=== PATIENT | female | born 1955 | race Two or more races ===

== ENCOUNTER 2025-01-12 08:54 | Observation (INO) | payer MEDICAID, SELFPAY ==
[2025-01-12] VITALS (13 sets, daily range): BP systolic 99–125; BP diastolic 57–69; PULSE 72–112; RESP 12–20; TEMP 36–37.2; O2SAT 92–100; BMI 22.8; BMI 25.2
--- NOTE | 2025-01-12 | XR_ITS ---
Examination: CT abdomen and pelvis without contrast. Coronal 3-D reconstructions. Sagittal 2-D reconstructions. Date and time of exam: January 12, 2025, 0923 hours INDICATIONS: Right upper abdominal pain right lower abdominal pain beginning 2 days ago CTDI: vol (mGy): 6.72 DLP: (mGycm): 377 Technique: Axial images of the abdomen have been obtained, 3 mm slice thickness Intravenous contrast material has not been administered. Low dose protocols were performed. One or more of the following dose reduction techniques were used; automated exposure control, adjustment of the mA and/or KV according to patient size, use of iterative reconstruction technique. Findings: No visualized liver or splenic lesion Abnormal gallbladder, gallstones, distended gallbladder with gallbladder wall thickening No pancreatic mass Multiple 1 to 2 mm left renal calculi Aorta normal size Normal appendix No bowel obstruction Mild fluid in the pelvis Atrophic uterus Intact urinary bladder Severe osteopenia with severe chronic osteoporotic compression T12 with mild retropulsion of this vertebral body Impression: Acute calculus cholecystitis
--- NOTE | 2025-01-12 09:16 | XR_ITS ---
Examination: Abdomen sonogram, Limited Date and time of exam: January 12, 2025, 10:20 a.m., comparison June 23, 2022 INDICATIONS: Right upper abdominal pain and tenderness beginning 2 days ago Technique: Real-time kasper scale transabdominal sonographic images of the upper abdomen obtained. Findings: Multiple gallstones Gallbladder sludge Prominent thickening of the gallbladder wall 2.2 cm with edema Common bile duct 0.6 cm Pancreatic head 2.1 cm Liver 16.5 cm fatty infiltration Normal hepatopetal portal venous flow Patent IVC IMPRESSION: Acute calculus cholecystitis
--- NOTE | 2025-01-12 09:16 | PD.EDRME ---
Rapid Medical Screening Exam RME Arrival date/time: 01/12/25 08:54 69-year-old female with no known medical history presents to the emergency room with a chief complaint of right sided upper and lower abdominal pain x 2 days I have greeted and performed a focused initial assessment of this patient. A comprehensive ED assessment and evaluation of the patient, analysis of all test results, and completion of the medical decision making process will be conducted by additional ED providers. Chief Complaint: Abdominal Pain Time Seen by Provider: 01/12/25 08:57 Vital signs: Vital Signs Temperature 98.1 F 01/12/25 09:13 Pulse Rate 112 H 01/12/25 09:13 Respiratory Rate 18 01/12/25 09:13 Blood Pressure 104/68 01/12/25 09:13 Pulse Oximetry (%) 97 01/12/25 09:13 Oxygen Delivery Method Room Air 01/12/25 09:13 Vital signs reviewed by provider: Yes Exam: Right upper quadrant abdominal pain with palpation Right lower quadrant abdominal pain with palpation Clinical Impression: Cholelithiasis/cholecystitis/appendicitis/gastroenteritis
[2025-01-12 09:52] LABS: Collection Type, Urine Clean Catch
[2025-01-12 09:53] LABS: Basophils # (Auto) 0.1 Thou/mm3 (0.0-0.2); Basophils % (Auto) 0 % (0-2.5); Eosinophils # (Auto) 0.3 Thou/mm3 (0.0-0.5); Eosinophils % (Auto) 1 % (0-10); Hematocrit 37.8 % (36.0-46.0); Hemoglobin 12.6 g/dL (12.0-16.0); Immature Granulocytes Auto 0.26 Thou/mm3 (0.00-0.00); Lymphocytes # (Auto) 1.1 Thou/mm3 (1.0-4.8); Lymphocytes % (Auto) 4 % (10-50); Mean Corpuscular HGB Conc 33.3 g/dl (31.0-37.0); Mean Corpuscular Hemoglobin 30.1 pg (25.0-35.0); Mean Corpuscular Volume 90 fL (80-100); Monocytes # (Auto) 1.5 Thou/mm3 (0.0-0.8); Monocytes % (Auto) 5 % (0-12); Neutrophils # (Auto) 26.1 Thou/mm3 (1.8-7.7); Neutrophils % (Auto) 89 % (37-80); Nucleated Red Blood Cell # 0.00 Thou/mm3 (0.00-0.00); Nucleated Red Blood Cell % 0 /100 WBC (0); Platelet Count 291 Thou/mm3 (140-440); RDW Standard Deviation 44.6 fL (36.4-46.3); Red Blood Count 4.19 Miln/mm3 (4.00-5.20); White Blood Count 29.2 Thou/mm3 (3.6-11.0)
[2025-01-12 10:12] LABS: Alanine Aminotransferase 10 U/L (10-49); Albumin, Serum 4.4 gm/dL (3.4-4.8); Albumin/Globulin Ratio 1.6 (1.2-2.2); Alkaline Phosphatase 92 U/L (46-116); Anion Gap 9 (7-16); Aspartate Amino Transferase 18 U/L (0-34); BUN/Creatinine Ratio 18 Ratio (12-20); Bilirubin,Total 2.2 mg/dL (0.3-1.2); Blood Urea Nitrogen 16 mg/dL (9-23); Calcium 9.3 mg/dL (8.3-10.6); Calcium (Corrected) 9.3 mg/dL (8.5-10.1); Carbon Dioxide 29.3 mMol/L (20.0-31.0); Chloride 97 mMol/L (98-107); Creatinine (Component) 0.9 mg/dL (0.6-1.3); Estimated Creatinine Clearance 60.4 mL/min (>60); Globulin 2.8 gm/dL (2.3-3.5); Glucose 133 mg/dL (74-106); Lipase 25 U/L (12-53); Osmolality,Calculated 273 (275-295); Potassium 4.0 mMol/L (3.4-5.1); Sodium 135 mMol/L (136-145); Total Protein 7.2 gm/dL (5.7-8.2); eGFR > 60 See Note
[2025-01-12 10:20] LABS: Bilirubin,Urine Negative (Negative); Blood,Urine Trace (Negative); Clarity,Urine Turbid (Clear/Hazy); Color,Urine Orange (Lt Yel-Yel); Glucose, Urine Negative (Negative); Granular Casts,Urine 4 /hpf (0-1); Ketones,Urine Negative (Negative); Leukocyte Esterase,Urine Positive (Negative); Nitrite,Urine Negative (Negative); PH,Urine 5.5 (5.0-7.0); Protein,Urine 1+ (Neg - Trace); RBC,Urine 3 /hpf (0-3); Specific Gravity,Urine 1.024 (1.001-1.035); Squamous Epithelial Cell,Urine < 1 /hpf (0-5); Transitional Epi Cells,Urine 1 /hpf (0-5); Urobilinogen,Urine 4.0 mg/dL (0.0-1.0); WBC,Urine 39 /hpf (0-5)
--- NOTE | 2025-01-12 10:52 | EDNOTE_ITS ---
ED Abdominal Pain RME/HPI General Chief Complaint: Abdominal Pain Stated complaint: ruq pain Time seen by provider: 01/12/25 08:57 Arrival date/time: 01/12/25 08:54 RME / HPI RME / HPI narrative: 01/12/25 08:54 69-year-old female with no known medical history presents to the emergency room with a chief complaint of right sided upper and lower abdominal pain x 2 days I have greeted and performed a focused initial assessment of this patient. A comprehensive ED assessment and evaluation of the patient, analysis of all test results, and completion of the medical decision making process will be conducted by additional ED providers. DR. MURRAY MAIN ED EVALUATION 69 year old female with history of hypothyroidism presents to the ED for evaluation of right upper and right mid abdominal beginning intermittently over the several months and worsening in the last 2 days. Pain described as aching in sensation, rating 10/10 in severity. Accompanied by decreased appetite. Otherwise, no other associated symptoms reported. Denies fevers, chills, chest pain , cough, shortness of breath, vomiting, diarrhea, constipation, or urinary symptoms. No history of similar pain. Exam: Right upper quadrant abdominal pain with palpation Right lower quadrant abdominal pain with palpation Impression: Cholelithiasis/cholecystitis/appendicitis/gastroenteritis Related Data Allergies Allergy/AdvReac Type Severity Reaction Status Date / Time ibuprofen Allergy Severe Hives Verified 01/12/25 08:58 Review of Systems Review of Systems Systems Reviewed: All systems reviewed, normal except as documented Past Medical History Social History SMOKING STATUS: Never smoker ED Exam Narrative Physical exam: GENERAL APPEARANCE: alert and oriented x 4, well-developed, well-nourished, no acute distress HEENT: Normocephalic, atraumatic; pupils equal, round, reactive to light; EOMI; mucous membranes pink, moist; oropharynx clear NECK: Supple LUNGS: CTABL; no wheezes, no rales, no rhonchi HEART: Regular rate, regular rhythm; normal S1, S2; no murmurs ABDOMEN: non distended; normal BS; soft, right side abdominal tenderness, no guarding, no rebound; no masses, no organomegaly, no hernia EXTREMITIES: atraumatic; no edema NEUROLOGIC: awake; alert and oriented x4; cranial nerves II-XII grossly intact; no focal sensory or motor deficits PSYCHIATRIC: appropriate mood and affect SKIN: warm, dry, normal color; no rashes Course Quality Measures none Orders Category Date Time Status Patient Condition Routine Admission 01/12/25 11:[address] in Observation Status Routine Admission 01/12/25 11:16 Active Activity as Tolerated Routine Care 01/12/25 11:16 Ordered Insert IV NOW Care 01/12/25 11:16 Active Obtain Written Consent For: NOW Care 01/12/25 11:16 Active Vital Signs, Non-Routine Q4H Care 01/12/25 11:30 Ordered Vital Signs, Non-Routine Q4H Care 01/12/25 15:30 Ordered Vital Signs, Non-Routine Q4H Care 01/12/25 19:30 Ordered Vital Signs, Non-Routine Q4H Care 01/12/25 23:[address] abdomen pelvis wo con Stat Exams 01/12/25 Completed US gall bladder Stat Exams 01/12/25 09:16 Completed CBC Stat Lab 01/12/25 09:35 Completed CMP [Comprehensive Metabolic Panel] Stat Lab 01/12/25 09:35 Completed Lipase Stat Lab 01/12/25 09:35 Completed UA [Urinalysis] Stat Lab 01/12/25 09:47 Completed Urine Culture Stat Lab 01/12/25 09:47 Received Piper/Tazo 3.375 gm Premix [Zosyn] Med 01/12/25 11:18 Active 3.375 gm in 50 ml IV Q8HR Sodium Chloride 0.9% 1000 ml [Ns] 1,000 ml Med 01/12/25 11:30 Active IV 500 mls/hr Code Status Routine Oth 01/12/25 11:16 Ordered Vital Signs Vital signs: Vital Signs Temperature 98.1 F 01/12/25 09:13 Pulse Rate 112 H 01/12/25 09:13 Respiratory Rate 18 01/12/25 09:13 Blood Pressure 104/68 01/12/25 09:13 Pulse Oximetry (%) 97 01/12/25 09:13 Oxygen Delivery Method Room Air 01/12/25 09:13 Pulse ox is 97% on room air which is adequate. Abdominal Pain MDM MDM Narrative MDM Narrative:: I, Carolina Xie, am scribing for and in the presence of Dr. Murray. 1055a: I spoke with surgeon Dr. Sanchez. Discussed patients PMHx, HPI, ED course, exam findings, labs, and radiology results. Will come and evaluate the patient. 1130a: Surgeon Dr. Sanchez has evaluated the patient in the ED, he agrees to accept the patient for surgical admission. Patient data External records reviewed:: [facility] previous records Clinical information provided by:: patient Social determinants that could affect healthcare access:: none Patient has the following chronic illnesses:: None reported How is presenting disease/condition affected by chronic disease/condition?: no chronic disease Evaluation data The following diagnostics were reviewed and interpreted by me:: lab results and radiology exam(s) Lab and/or radiology exams considered but not ordered:: None Interpretation Summary: Ordering Physician: Darrick Cortes Date of Service: 01/12/25 Procedure(s): CT abdomen pelvis wo con Accession Number(s): [id number] cc: Darrick Cortes; Ian Ag MD; MELISSA LINDSAY~ Examination: CT abdomen and pelvis without contrast. Coronal 3-D reconstructions. Sagittal 2-D reconstructions. Date and time of exam: January 12, 2025, 0923 hours INDICATIONS: Right upper abdominal pain right lower abdominal pain beginning 2 days ago CTDI: vol (mGy): 6.72 DLP: (mGycm): 377 Technique: Axial images of the abdomen have been obtained, 3 mm slice thickness Intravenous contrast material has not been administered. Low dose protocols were performed. One or more of the following dose reduction techniques were used; automated exposure control, adjustment of the mA and/or KV according to patient size, use of iterative reconstruction technique. Findings: No visualized liver or splenic lesion Abnormal gallbladder, gallstones, distended gallbladder with gallbladder wall thickening No pancreatic mass Multiple 1 to 2 mm left renal calculi Aorta normal size Normal appendix No bowel obstruction Mild fluid in the pelvis Atrophic uterus Intact urinary bladder Severe osteopenia with severe chronic osteoporotic compression T12 with mild retropulsion of this vertebral body Impression: Acute calculus cholecystitis Dictated By: Ian Ag MD Signed By: <Electronically signed by Ian Ag MD in OV> 01/12/25 1000 Ordering Physician: Darrick Cortes Date of Service: 01/12/25 Procedure(s): US gall bladder Accession Number(s): [id number] cc: Darrick Cortes; Ian Ag MD; MELISSA LINDSAY~ Examination: Abdomen sonogram, Limited Date and time of exam: January 12, 2025, 10:20 a.m., comparison June 23, 2022 INDICATIONS: Right upper abdominal pain and tenderness beginning 2 days ago Technique: Real-time kasper scale transabdominal sonographic images of the upper abdomen obtained. Findings: Multiple gallstones Gallbladder sludge Prominent thickening of the gallbladder wall 2.2 cm with edema Common bile duct 0.6 cm Pancreatic head 2.1 cm Liver 16.5 cm fatty infiltration Normal hepatopetal portal venous flow Patent IVC IMPRESSION: Acute calculus cholecystitis Dictated By: Ian Ag MD Signed By: <Electronically signed by Ian Ag MD in OV> 01/12/25 1106 Medications / Prescriptions Medications or Prescriptions considered but not ordered:: None Medication administrations:: Medication Administration History Sodium Chloride (Ns) 1,000 mls @ 500 mls/hr IV .Q2H DI Stop: 02/11/25 11:29 Piperacillin/Tazobactam/Dextrose (Zosyn) 3.375 gm in 50 mls @ 100 mls/hr IV Q8HR DI; Protocol Stop: 01/19/25 11:17 See above Consultations Consultation(s) initiated? (list below): Yes Consultation #1 (Physician, Specialty, Details): See MDM Diagnosis Differential diagnosis abdominal pain: abdominal pain, calculus of kidney, constipation, gastroenteritis and other (cholelithiasis ) Most likely diagnosis given after review of the tests above:: Acute cholecystitis Cholelithiasis Admission Indicated Admission indicated?: indicated Admission Request Was there a request for admission?: Yes Admission Attestation Admission request attestation: Discussed case with [] from Hospitalist service regarding admission. Discussed patients ED course, exam findings, labs, and radiology results. The Hospitalist [agrees,declines] to accept the patient for admission. Disposition Plan Disposition Plan: Admit Discharge Plan Plan Patient Disposition: Other Care w/in Hosp ([facility]) Prescriptions/Referrals Referrals: Melissa Lindsay [Primary Care Provider] - In 1 week Problem List Clinical Impression: Acute cholecystitis, Cholelithiasis Patient/Caregiver Discharge Instructions Print Language: Tamazight Stand Alone Forms: Mattie Award Info., Patient Portal Info Letter
[2025-01-12] MEDS: PIPER/TAZO 3.375 GM PREMIX 3.375 GM/50 ML BAG IV (11:46)
[2025-01-12] MEDS: SODIUM CHLORIDE 0.9% 1000 ML 1,000 ML 500 ML IV ×2 (11:46→14:17)
--- NOTE | 2025-01-12 13:35 | PC.NURSE ---
REPORT GIVEN TO BRIAN PARSON IN OR. PT SCHEDULED FOR SURGERY AROUND 16:00 THIS AFTERNOON.
--- NOTE | 2025-01-12 16:02 | PC.NURSE ---
DR AUSTIN CALLED FOR UPDATE ON PT. GAVE ORDER TO DECREASE NORMAL SALINE TO 125ML/HR.
[2025-01-12] MEDS: SODIUM CHLORIDE 0.9% 1000 ML 1,000 ML 125 ML IV ×2 (16:09→21:34)
--- NOTE | 2025-01-12 16:27 | PC.NURSE ---
PT TAKEN TO OR VIA GURNEY ACCOMPANIED BY OR TRANSPORT.
--- NOTE | 2025-01-12 16:54 | ESHP_ITS ---
HPI Date of Admission 01/12/25 11:16 Chief Complaint Chief Complaint: Patient is admitted with a diagnosis of acute calculous cholecystitis HPI History of present illness revealed that the patient was in her usual health until 2 days ago when she started having pain in the abdomen. This pain increased over the weekend and she came to the emergency room this morning and was found to have an acute cholecystitis. Patient denies having any such pain like this in the past but 3 years ago she was found to have gallstones. She never had surgery even though it was recommended but patient has reasonably been pain-free. She denies any history of fever or chills or jaundice. Patient's past medical history revealed that she has hypothyroidism. She denies any major illness like diabetes and. She has back injury few years ago which is bothering her now and is not employed. She denies any history of gallstones in the family Past Medical History Social History SMOKING STATUS: Never smoker Meds Home Medications and Allergies Allergies Allergy/AdvReac Type Severity Reaction Status Date / Time ibuprofen Allergy Severe Hives Verified 01/12/25 08:58 Exam Vital Signs Temp Pulse Resp BP Pulse Ox O2 Del Method 98.7 F 104 H 18 108/58 L 96 Room Air 01/12/25 15:14 01/12/25 16:00 01/12/25 16:00 01/12/25 16:00 01/12/25 16:00 01/12/25 16:00 Narrative Exam Physical examination revealed a 69-year-old female who is 5 foot 8 inches tall weighing 150 pounds with BMI of 22.8 she is tachycardic with pulse r ate of about 104 Constitutional Constitutional: moderate distress Routine Respiratory Exam Comments: Good breath sounds on both sides Routine Cardiovascular Exam Comments: Sinus tachycardia Routine Abdominal Exam Comments: Examination of the abdomen showed considerable tenderness in the right upper quadrant extending to the right lower quadrant. Bowel sounds are hypoactive Routine Rectal Exam Comments: Deferred Routine Exam Comments: Deferred Routine Extremities Exam Comments: Within normal limits Results Results: Laboratory Laboratory Narrative: Patient's laboratory workup showed WBC of 29,300 with a shift to the left. Liver enzymes are normal Results: Imaging Imaging narrative: CT scan of the abdomen showed acute calculous cholecystitis. Ultrasound of the abdomen showed the same with the thickening of the gallbladder amounting to 2.2 cm and edema around the gallbladder Assessment & Plan Additional Assessment Additional comments: Impression: Acute calculous cholecystitis Hypothyroidism Plan Plan: I advised patient to undergo laparoscopic cholecystectomy. The procedure was explained to her including potential complications like bleeding and bowel injury and possible common bile duct injury which may require additional surgery. She has been told about need for open cholecystectomy in case the laparoscopic approach fails due to severe inflammation. Patient also was told about the possibility of abscess underneath the liver in the gallbladder fossa due to extensive inflammation. Patient has been started on Zosyn and IV fluids and she will be taken to the operating room as soon as 1 is available. Quality Measures Quality Measures none Advance care planning discussed with:: child
--- NOTE | 2025-01-12 19:16 | ESOP_ITS ---
Date of Procedure 01/12/25 Pre Op Diagnosis Acute calculous cholecystitis with extensive inflammation Post Op Diagnosis Same with a very large stone measuring more than 5 cm in diameter Procedure Laparoscopic cholecystectomy Findings Patient was found to have inflamed gallbladder with fairly large stone making it difficult to operate Procedure Description After endotracheal anesthesia was given the patient was placed in supine position and the abdomen was prepped with chloroprep solution and draped in a sterile manner. After time out was performed I injected a few cc of of half percent Marcaine with epinephrine below the umbilicus and I made an incision for about 3 cm in length. The fascia was cleaned and Veress needle was inserted to create a pneumoperitoneum up to 15 mmHg. Then introduced a 12 mm trocar and a 10 mm camera through the fascia and I inspected the intra-abdominal organs as well as the gallbladder and the liver. Another 5 mm trocar was inserted in the epigastric region under direct vision after injecting some local anesthesia. At this time the patient was kept in reverse Trendelenburg position with the left lateral tilt. The third 5 mm trocar was inserted over the mid axillary line under direct vision and a Casper and Didier grasper was used to hold the fundus of the gallbladder. The retraction was carried out by the speech language pathologist assistant moving the fundus of the gallbladder towards the right shoulder of the patient to create enough traction. I placed a another 5 mm trocar in the midaxillary line just lateral to the rectus muscle under direct vision. Gallbladder was extremely distended and I decompressed the bile before being grasped at the fundus I used a fenestrated grasper to retract the neck of the gallbladder laterally towards the patient's right hip. The Calot's triangle was exposed and I achieved the critical view of safety as follows: I dissected out the fatty tissue from the hepatocystic triangle and cleared this area. I also dissected inferior and posterior to the gallbladder to identify the cystic duct and the gallbladder wall. Then superiorly I dissected along the cystic plate up to lower one third third of the gallbladder to lift the gallbladder from the liver. Patient had extensive inflammation and thickening of the gallbladder wall making it rather easy to dissect without entering into the liver substance. At this time I confirmed that only 2 structures entering the gallbladder were cystic artery and the cystic duct. The common duct was not seen distally but no dissection was carried out around the duct. . The cystic duct was clipped doubly and then divided and cystic artery was similarly dealt with. Then the gallbladder was removed from the liver bed using Harmonic jenna to control the small blood vessels as the dissection proceeded. Then the gallbladder was from the liver bed completely and and I realized that I could not deliver the gallbladder through the Endopouch because of its size due to inflammation as well as the large stone which would not fit into Endopouch. At this time I made a an incision in the umbilicus extended the incision to 5 to 6 cm almost like a mini laparotomy. Then the gallbladder was pulled out along with the stone through this opening and delivered out. The trocars were reinserted and the liver bed was coagulated with cautery to obtain satisfactory hemostasis. I left a 15 round Mike-Ozuna under the liver bed to collect any blood and bile if needed. The trocars were pulled out from the abdominal cavity and the fascia at the umbilical incision was closed with interrupted 0 Ethibond. About 7 or 8 sutures to close the mini laparotomy. Subcutaneous tissues was closed with 3-0 chromic and injected a few cc of half percent Marcaine with epinephrine and the skin was closed with interrupted 4-0 nylon stitches at all the trocar sites. Dressing was applied with 2 x 2 and Tegaderm. Patient tolerated the procedure well and returned to recovery room in stable condition. Anesthesia GETA Pathology / specimen Other (Gallbladder and the stone) IVF Infused 1,200 Estimated Blood Loss 100 Condition Stable Disposition PACU Surgeon Too Diaz MD Surgical Staff Operation Date: 01/12/25 15:45 Case Staff Anesthesiologist: Ortiz Harrison RNphotographer helper: Dee Ascencio
--- NOTE | 2025-01-12 19:30 | SUR.PHASEI ---
pt arrived to PACU via gurney drowsy but arouses to voice, breathing unlabored, dressing to abdomen clean, dry, and intact with GONZÁLEZ drain in place and patent-draining serosanguineous fluid, report from Maximo PARSON and Dr Harrison
--- NOTE | 2025-01-12 19:50 | SUR.PHASEI ---
pt tolerating ice chips without difficulty swallowing or n/v.
--- NOTE | 2025-01-12 20:04 | SUR.PHASEI ---
pt awake, alert, able to follow commands, breathing unlabored, dressing to abdomen clean, dry, and intact, GONZÁLEZ drain in place and patent draining serosanguineous fluid, VS stable, report called to Georgie PARSON, pt transferred to room at this time, family updated on room status.
[2025-01-13] VITALS (9 sets, daily range): BP systolic 92–121; BP diastolic 54–72; PULSE 76–99; RESP 16–19; TEMP 36.1–36.8; O2SAT 92–100
[2025-01-13] MEDS: PIPER/TAZO 3.375 GM PREMIX 3.375 GM/50 ML BAG IV ×3 (06:06→21:22)
[2025-01-13] MEDS: SODIUM CHLORIDE 0.9% 1000 ML 1,000 ML 125 ML IV (06:09)
[2025-01-13 06:25] LABS: Basophils # (Auto) 0.0 Thou/mm3 (0.0-0.2); Basophils % (Auto) 0 % (0-2.5); Eosinophils # (Auto) 0.0 Thou/mm3 (0.0-0.5); Eosinophils % (Auto) 0 % (0-10); Hematocrit 29.4 % (36.0-46.0); Hemoglobin 9.9 g/dL (12.0-16.0); Immature Granulocytes Auto 0.19 Thou/mm3 (0.00-0.00); Lymphocytes # (Auto) 0.6 Thou/mm3 (1.0-4.8); Lymphocytes % (Auto) 3 % (10-50); Mean Corpuscular HGB Conc 33.7 g/dl (31.0-37.0); Mean Corpuscular Hemoglobin 30.6 pg (25.0-35.0); Mean Corpuscular Volume 91 fL (80-100); Monocytes # (Auto) 0.4 Thou/mm3 (0.0-0.8); Monocytes % (Auto) 2 % (0-12); Neutrophils # (Auto) 19.7 Thou/mm3 (1.8-7.7); Neutrophils % (Auto) 94 % (37-80); Nucleated Red Blood Cell # 0.00 Thou/mm3 (0.00-0.00); Nucleated Red Blood Cell % 0 /100 WBC (0); Platelet Count 229 Thou/mm3 (140-440); RDW Standard Deviation 45.5 fL (36.4-46.3); Red Blood Count 3.24 Miln/mm3 (4.00-5.20); White Blood Count 20.9 Thou/mm3 (3.6-11.0)
[2025-01-13 07:47] LABS: Alanine Aminotransferase 20 U/L (10-49); Albumin, Serum 3.3 gm/dL (3.4-4.8); Alkaline Phosphatase 100 U/L (46-116); Aspartate Amino Transferase 35 U/L (0-34); Bilirubin,Direct 0.4 mg/dL (0.0-0.3); Bilirubin,Total 0.8 mg/dL (0.3-1.2)
--- NOTE | 2025-01-13 09:41 | PD.SURPROG ---
Documentation for date of: 01/13/25 Subjective Subjective Brief History: History of present illness revealed that the patient was in her usual health until 2 days ago when she started having pain in the abdomen. This pain increased over the weekend and she came to the emergency room this morning and was found to have an acute cholecystitis. Patient denies having any such pain like this in the past but 3 years ago she was found to have gallstones. She never had surgery even though it was recommended but patient has reasonably been pain-free. She denies any history of fever or chills or jaundice. Patient's past medical history revealed that she has hypothyroidism. She denies any major illness like diabetes and. She has back injury few years ago which is bothering her now and is not employed. She denies any history of gallstones in the family Narrative: Patient is feeling better today with less pain Exam Vital Signs Temp Pulse Resp BP Pulse Ox O2 Del Method O2 Flow Rate 97 F 97 17 92/72 96 Room Air 2 01/13/25 07:56 01/13/25 07:56 01/13/25 07:56 01/13/25 07:56 01/13/25 07:56 01/13/25 07:56 01/13/25 07:02 Vital signs are normal Routine Abdominal Exam Comments: Abdominal examination is negative Results Results: Laboratory Laboratory Narrative: WBC is down to 20,000. There is a slight drop in the hemoglobin. Assessment & Plan Assessment Additional comments: Impression: Stable recovery following laparoscopic cholecystectomy Plan Plan: We shall advance her diet. Continue antibiotics for at least another day and she will be made an inpatient PROCEDURES: Procedures Laparoscopic cholecystectomy
--- NOTE | 2025-01-13 11:06 | PC.SS ---
Oneyda Marion is a 69-year-old female admitted to Med Surg for Acute Calculous Delia. SS conducted bedside contact with the patient to complete initial assessment and to discuss discharge planning. Role and reason explained. Patient confirmed demographic information. Patient identifies dtr Alva Marion [phone] as her surrogate decision maker. Pt states she is able to complete all ADL?s independently. No need for any source of DME. Pts PCP is Dr. Bales at [facility]. Pharmacy of choice is [facility]. Discharge options discussed and the pt wishes to return home.? Family will provide transportation upon DC. No further intervention required at this time, psych social worker would be available to address any further concerns. DC Plan: Home Contact: Tavia Calle Address: Confirmed on face sheet PCP: Nii
[2025-01-13 13:20] LABS: Total Protein 5.6 gm/dL (5.7-8.2)
[2025-01-13] MEDS: PROPRANOLOL 10 MG TABLET PO (21:22)
[2025-01-14] VITALS: BP 113/70; PULSE 87; RESP 16; TEMP 36.1; O2SAT 95
--- NOTE | 2025-01-14 03:57 | PC.NURSE ---
[facility] 01[facility]14/25 from 02:00am to 03:48am.
[2025-01-14 04:00] VITALS: BP 126/70; PULSE 80; RESP 17; TEMP 36.5; O2SAT 96
[2025-01-14] MEDS: PIPER/TAZO 3.375 GM PREMIX 3.375 GM/50 ML BAG IV (05:31)
[2025-01-14 06:20] LABS: Basophils # (Auto) 0.0 Thou/mm3 (0.0-0.2); Basophils % (Auto) 0 % (0-2.5); Eosinophils # (Auto) 0.0 Thou/mm3 (0.0-0.5); Eosinophils % (Auto) 0 % (0-10); Hematocrit 28.8 % (36.0-46.0); Hemoglobin 9.7 g/dL (12.0-16.0); Immature Granulocytes Auto 0.08 Thou/mm3 (0.00-0.00); Lymphocytes # (Auto) 1.1 Thou/mm3 (1.0-4.8); Lymphocytes % (Auto) 7 % (10-50); Mean Corpuscular HGB Conc 33.7 g/dl (31.0-37.0); Mean Corpuscular Hemoglobin 30.1 pg (25.0-35.0); Mean Corpuscular Volume 89 fL (80-100); Monocytes # (Auto) 0.7 Thou/mm3 (0.0-0.8); Monocytes % (Auto) 4 % (0-12); Neutrophils # (Auto) 14.4 Thou/mm3 (1.8-7.7); Neutrophils % (Auto) 89 % (37-80); Nucleated Red Blood Cell # 0.00 Thou/mm3 (0.00-0.00); Nucleated Red Blood Cell % 0 /100 WBC (0); Platelet Count 308 Thou/mm3 (140-440); RDW Standard Deviation 45.5 fL (36.4-46.3); Red Blood Count 3.22 Miln/mm3 (4.00-5.20); White Blood Count 16.2 Thou/mm3 (3.6-11.0)
--- NOTE | 2025-01-14 06:26 | PC.NURSE ---
mild swelling right lateral antecubital iv site - Pt refused iv reinsertion at this time due to pt might be discharged today and next dose of iv antibiotic is due at 14:00pm.
[2025-01-14 06:50] LABS: Alanine Aminotransferase 20 U/L (10-49); Albumin, Serum 3.6 gm/dL (3.4-4.8); Alkaline Phosphatase 94 U/L (46-116); Aspartate Amino Transferase 23 U/L (0-34); Bilirubin,Direct 0.3 mg/dL (0.0-0.3); Bilirubin,Total 0.5 mg/dL (0.3-1.2); Total Protein 6.0 gm/dL (5.7-8.2)
[2025-01-14] MEDS: METHIMAZOLE 5 MG TABLET PO (07:31)
[2025-01-14 07:42] VITALS: PULSE 90; RESP 18; RESP 92
[2025-01-14 08:00] VITALS: BP 115/63; PULSE 96; RESP 18; TEMP 36.3; O2SAT 90
--- NOTE | 2025-01-14 09:47 | PC.SS ---
Rounding: DC plan home for today, no needs identified
[2025-01-14 12:00] VITALS: BP 115/63; PULSE 87; RESP 18; TEMP 36.1; O2SAT 93
--- NOTE | 2025-01-14 14:56 | PD.SURPROG ---
Documentation for date of: 01/14/25 Subjective Subjective Brief History: History of present illness revealed that the patient was in her usual health until 2 days ago when she started having pain in the abdomen. This pain increased over the weekend and she came to the emergency room this morning and was found to have an acute cholecystitis. Patient denies having any such pain like this in the past but 3 years ago she was found to have gallstones. She never had surgery even though it was recommended but patient has reasonably been pain-free. She denies any history of fever or chills or jaundice. Patient's past medical history revealed that she has hypothyroidism. She denies any major illness like diabetes and. She has back injury few years ago which is bothering her now and is not employed. She denies any history of gallstones in the family Narrative: The patient is doing well and has minimal drainage in the GONZÁLEZ drain. There is no bilious drainage. Exam Vital Signs Temp Pulse Resp BP Pulse Ox O2 Del Method O2 Flow Rate 97.0 F 87 18 115/63 93 L Room Air 1 01/14/25 12:01/14/25 12:01/14/25 12:01/14/25 12:01/14/25 12:01/14/25 12:01/13/25 20:18 Her vital signs are normal Routine Abdominal Exam Comments: Abdominal examination is negative and she is tolerating diet Results Results: Laboratory Laboratory Narrative: Laboratory results show WBC decreasing towards normal value Assessment & Plan Assessment Additional comments: Impression: Stable postoperative course following laparoscopic cholecystectomy Plan Plan: We shall discharge her today on antibiotics and follow her up in my office on Sunday PROCEDURES: Procedures Laparoscopic cholecystectomy
--- NOTE | 2025-01-14 15:54 | PC.NURSE ---
Patient discharged home. Discharge instructions signed and printed. IV removed. Patient and family educated on GONZÁLEZ drain. All questions answered.
--- NOTE | 2025-01-15 20:32 | ESDS_ITS ---
RE: KARELY VÁZQUEZ : 1955 DATE OF ADMISSION: 01/12/2025 DATE OF DISCHARGE: 01/14/2025 15:40 DATE OF ADMISSION: 01/12/2025 DATE OF DISCHARGE: 01/14/2025 FINAL DIAGNOSES: 1. Acute calculous cholecystitis with extensive inflammation. 2. Hyperthyroidism. REASON FOR ADMISSION: This patient is a 69-year-old female who was seen because of abdominal pain for the 2 days prior to seeing her in the ER. She was found to have significant tenderness in the ER and examination showed signs of acute cholecystitis. The patient's WBC was 29,300 with a shift to the left. The liver enzymes are normal. The patient had a CT scan of the abdomen, which showed acute calculous cholecystitis. Ultrasound of the abdomen showed thickening of the gallbladder, amounting to 2.2 cm in diameter and edema around the gallbladder. HOSPITAL COURSE: The patient was therefore taken to the operating room on an emergency basis. On the day of admission on 01/12/2025, she was found to have extensive inflammation due to a very large stone in the gallbladder. She underwent laparoscopic cholecystectomy and her postoperative course was uneventful. She was kept in the hospital for 36 hours for IV antibiotics. Her WBC gradually came down from 29,000 to 16.2. The patient was tolerating clear liquids and regular diet, and was reasonably pain-free. The patient was therefore discharged on oral antibiotics with Augmentin 14 tablets 1 p.o. b.i.d. for one week, on [place] 20 tablets for pain to be taken every 4-6 hours. The patient still had the [place] drain that was placed in because of the extensive inflammation and bleeding. She will be seen in my office on 01/16/2025, and will get this GONZÁLEZ removed. DT: 10::08 TT: 20:31:00 Ref: [id number] - TID: [id number]
== END 2025-01-14 15:40 | disposition home or self-care (01) ==
LOC: SERX 11:31 → SERHOLD 01-14 09:46 → S3SX 01-14 09:47
PROVIDERS: Admitting Provider Surgery; Emergency Provider Nurse Practitioner Family; Visit Provider Surgery
PROC: 0FT44ZZ Resection of Gallbladder, Percutaneous Endoscopic Approach (ICD-10-PCS; CPT 47562; principal; 2025-01-12 15:30)
DX: K80.12 Calculus of gallbladder with acute and chronic cholecystitis without obstruction (principal); K82.A1 Gangrene of gallbladder in cholecystitis; E03.9 Hypothyroidism, unspecified
CPT/HCPCS: 47562; 36415; 74176; 76705; 80053; 80076; 81001; 83690; 85025; 87086; 94664; 96360; 96361; 99283; A4217; A4649; G0378; J0131; J1100; J2270; J2371; J2543; J2704; J2710; J2765; J3010; J3490; J7030; A9270; J1596; J1805